=== PATIENT | female | born 1985 | race African-American/Black ===

== ENCOUNTER 2018-11-08 05:37 | Day surgery (SDC) | payer OTHER ==
[2018-11-08 06:30] LABS: ADD MAN DIFF? NO
[2018-11-08] MEDS ORDERED: CEFAZOLIN 2 GM/50 ML (PMX) 50 ML IVPB (06:30)
[2018-11-08] MEDS ORDERED: SOD CHLORIDE 0.9% 1,000 ML IV (06:30)
[2018-11-08 06:33] LABS: WHITE BLOOD COUNT 8.2 10^3/ul (4.8-10.8)
[2018-11-08 06:33] LABS: BASOPHILS % 0.4 % (0.0-2.0); HEMATOCRIT 36.5 % (37.0-47.0); HEMOGLOBIN 11.9 g/dl (12.0-16.0); LYMPHOCYTES # 1.1 10^3/ul (0.8-2.9); LYMPHOCYTES % 13.7 % (15.0-51.0); MEAN CORPUSCULAR HGB CONC 32.6 g/dl (32.0-37.0); MEAN CORPUSCULAR VOLUME 88.8 fl (82.0-101.0); MEAN PLATELET VOLUME 10.7 fl (7.4-10.4); MONOCYTE # 0.7 10^3/ul (0.3-0.9); MONOCYTES % 9.1 % (0.0-11.0); NEUTROPHIL # 6.2 10^3/ul (1.6-7.5); NEUTROPHILS % 76.4 % (39.0-77.0); PLATELET COUNT 335 10^3/UL (140-415); RED BLOOD COUNT 4.11 10^6/ul (4.20-5.40); RED CELL DISTRIBUTION WIDTH 12.7 % (11.5-14.5)
[2018-11-08 06:51] LABS: INR 1.01; PROTIME 13.4 Sec (11.9-14.9)
[2018-11-08 06:52] LABS: PARTIAL THROMBOPLASTIN TIME 30.9 Sec (23.0-35.0)
[2018-11-08] MEDS ORDERED: SUCCINYLCHOLINE CHLORIDE 100 MG/5 ML SYG IV (07:00)
[2018-11-08 07:04] LABS: ALANINE AMINOTRANSFERASE 23 IU/L (13-69); ALBUMIN 4.3 g/dl (3.3-4.9); ALBUMIN/GLOBULIN RATIO 1.19; ALKALINE PHOSPHATASE 56 IU/L (42-121); ANION GAP 13 (5-13); ASPARTATE AMINO TRANSFERASE 23 IU/L (15-46); BILIRUBIN,INDIRECT 0.2 mg/dl (0-1.1); BILIRUBIN,TOTAL 0.2 mg/dl (0.2-1.3); CALCIUM 9.5 mg/dl (8.4-10.2); CARBON DIOXIDE 26 mmol/L (21-31); CHLORIDE 101 mmol/L (97-110); Estimated GFR > 60 mL/min (>60); GLUCOSE 97 mg/dl (70-220); POTASSIUM 4.1 mmol/L (3.5-5.1); SODIUM 140 mmol/L (135-144); TOTAL PROTEIN 7.9 g/dl (6.1-8.1)
[2018-11-08] MEDS ORDERED: ONDANSETRON 4 MG INJ (07:19)
[2018-11-08] MEDS ORDERED: MIDAZOLAM 1 MG/ML 2 ML INJ (07:19)
[2018-11-08] MEDS ORDERED: LIDOCAINE 2% (SDV) 5 ML INJ (07:19)
[2018-11-08] MEDS ORDERED: FENTAnyl 50 MCG/ML VIAL (07:19)
[2018-11-08] MEDS ORDERED: DEXAMETHASONE 4 MG/ML 5 ML INJ (07:19)
[2018-11-08] MEDS ORDERED: PROPOFOL 20 ML (07:19)
[2018-11-08] MEDS ORDERED: ROCURONIUM 50 MG INJ (07:19)
[2018-11-08 07:22] LABS: BLOOD UREA NITROGEN 5 mg/dl (7-20)
[2018-11-08] MEDS ORDERED: EPHEDrine 25 MG/5 ML SYG (07:26)
[2018-11-08] MEDS ORDERED: CEFAZOLIN 1 GM INJ ×2 (07:28→08:30)
[2018-11-08] MEDS ORDERED: FENTAnyl 50 MCG/ML VIAL IV (07:30)
[2018-11-08] MEDS ORDERED: ONDANSETRON 4 MG INJ IV (07:30)
[2018-11-08] MEDS: LIDOCAINE 1% (MPF) 30 ML INJ (08:32)
[2018-11-08] MEDS: BUPIVACAINE 0.5%/EPI (SDV) 30 ML INJ (08:32)
[2018-11-08] MEDS ORDERED: KETOROLAC 30 MG INJ (08:40)
== END 2018-11-08 11:02 | disposition home or self-care (01) ==
LOC: SDS 05:37
DX: L73.2 Hidradenitis suppurativa (principal)
CPT/HCPCS: 11451; 80053; 85025; 85610; 85730; 88305